=== PATIENT | female | born 1990 | race African-American/Black ===

== ENCOUNTER 2019-12-26 12:30 | Outpatient (CLI) | payer OTHER ==
--- NOTE | 2019-12-26 13:39 | XRay Report ---
LEFT WRIST 3 VIEWS INDICATION: PAIN IN LEFT WRIST. COMPARISON: None. IMPRESSION: No acute osseous or soft tissue abnormality. No significant DJD. 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 Signer Name: Dennis Briones Jr, MD Signed: 12/26/2019 1:34 PM Workstation Name: [id number]
== END 2019-12-26 12:31 | disposition home or self-care (01) ==
LOC: XRAY 12:30
PROVIDERS: ATTEND Surgery
DX: S52.612A Displaced fracture of left ulna styloid process, initial encounter for closed fracture (principal); M25.532 Pain in left wrist; X58.XXXA Exposure to other specified factors, initial encounter; Y93.89 Activity, other specified; Y92.89 Other specified places as the place of occurrence of the external cause; Y99.8 Other external cause status

== ENCOUNTER 2020-01-02 10:10 | Outpatient (CLI) | payer OTHER ==
--- NOTE | 2020-01-02 13:30 | Ultrasound Report ---
Limited left wrist Ultrasound HISTORY: LEFT WRIST PAIN AND SWELLING. TECHNIQUE: Grayscale and color imaging performed. COMPARISON: Left wrist radiographs from 12/26/2019 FINDINGS: There is mild thickening and heterogeneity in the first extensor compartment, with slight h yperemia and trace surrounding fluid within the tendon sheath. There is no ezequiel tendon tear and a dy namic imaging shows an intact tendon. IMPRESSION: Mild tenosynovitis in the first extensor compartment. No tendon tear. Signer Name: Kelechi Hunt MD Signed: 01/02/2020 1:29 PM Workstation Name: [id number]
== END 2020-01-02 10:11 | disposition home or self-care (01) ==
LOC: US 10:10
PROVIDERS: ATTEND Surgery
DX: M65.832 Other synovitis and tenosynovitis, left forearm (principal)